=== PATIENT | male | born 1970 | race Caucasian/White ===

== ENCOUNTER → 2022-08-23 | Day surgery (SDC) | payer OTHER ==
[2022-08-20 10:14] VITALS: BMI 37.2
[2022-08-23 08:02] VITALS: BP 152/102; TEMP 98.7
[2022-08-23 09:45] LABS: CSF, Glucose 72 mg/dl (40-70); CSF, Protein 48 mg/dL (15-40)
[2022-08-23 10:10] LABS: CSF Source CSF; Clarity Clear (Clear); Tube # 4
[2022-08-23 11:34] LABS: Color Of CSF Supernatant COLORLESS (Colorless); Tube # 1; Unspun CSF Color COLORLESS (Colorless)
[2022-08-23 13:46] LABS: ANA Symphony (Qualitative) Negative (Negative); ANA Symphony (Quantitative) 0.4 Ratio (< 0.7 Negative); SSA/Ro IgG Antibody 0.5 EliAU/mL (<7 Negative); SSB/La IgG Antibody 0.5 EliAU/mL (<7 Negative); dsDNA IgG Antibody 2.8 IU/mL (<10 Negative)
[2022-08-23 15:05] LABS: CCP IgG Antibody 1.2 EliAU/mL (<7 Negative); EliA RAS New Method **** NEW METHOD ****; Rheumatoid Factor IgM Antibody 1.3 IU/mL (<3.5 Negative)
== END | disposition home or self-care (01) ==
LOC: RAD 07:16
PROVIDERS: ATTEND Psychiatry & Neurology Neurology
PROC: 009U3ZX Drainage of Spinal Canal, Percutaneous Approach, Diagnostic (ICD-10-PCS; principal; 2022-08-23)
DX: G62.9 Polyneuropathy, unspecified (principal); S32.020A Wedge compression fracture of second lumbar vertebra, initial encounter for closed fracture; M10.9 Gout, unspecified; E78.5 Hyperlipidemia, unspecified; I10 Essential (primary) hypertension; E03.9 Hypothyroidism, unspecified; Z86.16 Personal history of COVID-19; Z86.73 Personal history of transient ischemic attack (TIA), and cerebral infarction without residual deficits; Z79.82 Long term (current) use of aspirin; Z79.899 Other long term (current) drug therapy; Z91.013 Allergy to seafood
CPT/HCPCS: 62270; 82607; 82945; 83520; 84157; 84446; 86038; 86200; 86225; 86235; 89051